=== PATIENT | male | born 1965 | race Caucasian/White ===

== ENCOUNTER 2017-03-01 10:22 | Emergency (ER) | payer SELFPAY ==
[~2017-03-01] VITALS: Ht 175.2 cm; Wt 86.2 kg
[2017-03-01] MEDS ORDERED: CYCLOBENZAPRINE5 M3 PO (10:36)
[2017-03-01] MEDS ORDERED: PREDNISONE50 MG PO (10:36)
[2017-03-01] MEDS ORDERED: NAPROSYN500 MG PO (10:36)
== END 2017-03-01 14:04 | disposition home or self-care (01) ==
LOC: ED 10:22
DX: M54.5 Low back pain (principal)

== ENCOUNTER 2017-04-18 19:59 | Emergency (ER) | payer SELFPAY ==
[~2017-04-18] VITALS: Ht 175.2 cm; Wt 90.7 kg
[~2017-04-18 19:59] MED LIST: CYCLOBENZAPRINE5 M3 PO; NAPROSYN500 MG PO; PREDNISONE50 MG PO
== END 2017-04-18 22:13 | disposition home or self-care (01) ==
LOC: ED 19:59
DX: M70.22 Olecranon bursitis, left elbow (principal); F17.200 Nicotine dependence, unspecified, uncomplicated; Z98.890 Other specified postprocedural states; W22.8XXA Striking against or struck by other objects, initial encounter; Y93.89 Activity, other specified; Y92.69 Other specified industrial and construction area as the place of occurrence of the external cause; Y99.9 Unspecified external cause status

== ENCOUNTER → 2023-09-03 | Outpatient (CLI) | payer MEDICAID | END | disposition home or self-care (01) | LOC: RESCLI 09:59 | PROVIDERS: ATTEND Student in an Organized Health Care Education/Training Program | DX: I10 Essential (primary) hypertension (principal); F41.9 Anxiety disorder, unspecified; F43.10 Post-traumatic stress disorder, unspecified; M54.9 Dorsalgia, unspecified; I25.10 Atherosclerotic heart disease of native coronary artery without angina pectoris; Z86.711 Personal history of pulmonary embolism; Z87.891 Personal history of nicotine dependence; Z98.890 Other specified postprocedural states; Z79.82 Long term (current) use of aspirin; Z79.899 Other long term (current) drug therapy ==